=== PATIENT | female | born 2005 | race African-American/Black ===

== ENCOUNTER 2024-12-09 10:47 | Emergency (ER) | payer OTHER, SELFPAY ==
--- NOTE | ~2024-12-09 | XR_ITS ---
EXAMINATION: XR CHEST 2 VIEWS HISTORY: pain COMPARISON: There are no prior studies for comparison. FINDINGS: PA and lateral views of the chest are submitted. The lungs are expanded and clear. There is no pleural effusion, pneumothorax, or pulmonary vascular congestion. The heart is normal in size. The bones are intact. XR/XR chest 2V IMPRESSION: Normal examination of the chest. Electronically signed by: Morgan Ryan MD 12/09/2024 11:44 AM EDT
[2024-12-09 11:16] VITALS: BP 115/73; PULSE 92; RESP 18; TEMP 36.4; O2SAT 99; BMI 25.6
--- NOTE | 2024-12-09 11:16 | ED_ITS ---
HPI - General Adult General Chief complaint: Upper Respiratory Symptoms Stated complaint: cough up blood Time Seen by Provider: 12/09/24 13:03 Source: patient Mode of arrival: ambulatory Limitations: no limitations History of Present Illness ED Provider: julianne jordan np HPI narrative: Patient is a 18-year-old female who presents emergency department for evaluation. She reports since yesterday evening she noticed flex of blood in her phlegm upon coughing. She has had a productive cough for the past 2 days. [facility], she received Tylenol, ibuprofen, and a cough syrup. She states she decided to come to emergency department today due to the concern of blood that she had noticed in the phlegm. She denies associated fevers, chills, chest pain, shortness of breath, difficulty breathing, nausea, vomiting, abdominal pain, numbness or tingling of the extremities, personal history of VTE/malignancy, use of anticoagulants or known coagulation disorders, recent lower extremity redness pain or swelling. She is on Nexplanon contraception. Related Data Previous Rx's ?Medication ?Instructions ?Recorded benzonatate 200 mg capsule 200 mg PO TID PRN cough #14 caps 12/09/24 Allergies Allergy/AdvReac Type Severity Reaction Status Date / Time No Known Allergies Allergy Verified 12/09/24 11:18 Review of Systems 2 Review of Systems: Yes all other systems are reviewed and are negative PMFSH Past Medical History Attestation statement: The following information was validated with the patient. Source: old records reviewed Social History Social History Smoked in Last 30 Days: No Substance Use Type: Marijuana Advance Directives: No Advance Directives Information Provided: Yes Physical Exam ED Vital Signs: Vital Signs - 24 hr 12/09/24 11:16 12/09/24 13:40 Temperature 97.5 F 98.0 F Pulse Rate 92 90 Respiratory Rate 18 16 Blood Pressure 115/73 111/60 Pulse Oximetry 99 97 Oxygen Delivery Method Room Air Room Air BMI result Body Mass Index 25.6 Appearance: Alert.?Oriented to person, place and time. No acute distress.?Normal affect. Eyes: Pupils equal, round and reactive to light.? ENT: TM normal bilaterally. Pharynx normal.?? Neck: Normal inspection.? Neck supple.??No cervical adenopathy CVS: Heart sounds normal. Normal heart rate and rhythm.? Pulses normal.?? Respiratory: No respiratory distress.? Lung sounds clear to auscultation bilaterally?? Abdomen: Soft and non-tender. Normoactive bowel sounds. Skin: Skin warm and dry.? Normal skin color.? ? Extremities: No lower extremity edema.? Neuro: Moves all extremities spontaneously. Sensation intact bilaterally. No motor deficits. Ambulates with normal steady gait. Course Course Course Narrative: RME, this is a rapid medical exam performed by Kannan Doshi please refer to primary provider for complete H&P- 18-year-old female with past medical history significant for cerebral palsy, epilepsy presents for evaluation of coughing up blood. Patient reports that she has been coughing worse in the mornings over the last 2 days. She is on Nexplanon contraception. She was well-appearing, vital signs are stable in triage. Plan for labs and chest x-ray Medical Decision Making Medical Decision Making MDM Narrative: Patient is a 18-year-old female with past medical history of cerebral palsy, epilepsy, presenting for evaluation of productive cough with blood-tinged sputum over the past 2 days as per HPI. COVID-19 /Influenza/ RSV testing is negative. CXR was obtained and is without evidence of consolidation or infiltrate, Not favoring pneumonia. She uses Nexplanon for contraception, pulses just greater than 92 however she is otherwise without chest pain shortness of breath tachypnea or hypoxia, lower suspicion for acute pulmonary embolism, D-dimer <150. overall she is Well-appearing, nontoxic, afebrile, Speaking clear full sentences, ambulatory with steady gait. Discussed conservative treatment including rest, hydration, Tylenol/ibuprofen as needed for fever and body aches, saline nasal spray, humidifier, [id number] cold medication. Advised to follow-up with primary care provider as needed, discussed reasons to return back to the emergency department. All questions were answered. Patient discharged home in stable condition. Differential Diagnosis Differential Diagnoses: The differential diagnosis associated with the presentation includes ( See narrative above) Admission/Observation Consideration of admission/observation: Escalation of care including admission/observation considered ( see narrative above) Lab Data [facility] Lab Attestation statement: I reviewed the patient's lab results. ( see narrative above) CBC is without leukocytosis, has a mild normocytic anemia that does not meet transfusion criteria, no thrombocytopenia. No electrolyte derangement. No ALBINO. LFTs unremarkable. 12/09/24 13:03 12/09/24 13:03 Labs: Lab Results 12/09/24 12/09/24 12/09/24 Range/Units 13:00 13:03 14:17 WBC 8.6 (4.8-10.8) X10*3/uL RBC 3.61 L (4.20-5.50) X10*6/uL Hgb 11.1 L (12.0-16.0) g/dl Hct 33.1 L (37.0-47.0) % MCV 91.7 (80.0-98.0) fL MCH 30.7 (27.0-33.0) pg MCHC 33.5 (31.0-35.0) g/dl RDW 12.6 (11.0-16.0) % Plt Count 268 (160-400) X10*3/uL MPV 9.7 (9.4-12.3) fL Immature Gran % (Auto) 0.3 (0.0-0.4) % Neut % (Auto) 66.9 (45-73) % Lymph % (Auto) 25.2 (20-40) % [place] % (Auto) 7.0 (2-11) % Eos % (Auto) 0.3 (0-4) % Baso % (Auto) 0.3 (0-2) % Lymph # (Auto) 2.2 (1.2-4.9) X10*3/uL [place] # (Auto) 0.6 (0.1-1.2) X10*3/uL Eos # (Auto) 0.0 (0.0-0.4) X10*3/uL Baso # (Auto) 0.0 (0.0-0.2) X10*3/uL Abs Immat Gran (auto) 0.03 (0.00-0.03) X10*3/uL Absolute Neuts (auto) 5.7 (2.0-8.3) x10*3/uL Absolute Nucleated RBC 0.000 (0.0-0.012) X10*3/uL Nucleated RBC % (auto) 0.0 (0.0-0.2) /100WBC D-Dimer High Sensitivty < 150 NG/ML Sodium 138 (135-145) mmol/L Potassium 3.8 (3.3-5.1) mmol/L Chloride 106 (96-108) mmol/L Carbon Dioxide 27 (22-29) mmol/L Anion Gap 9 L (12-20) BUN 6 L (9-16) mg/dL Creatinine 0.69 (0.5-1.4) mg/dL Estim Creat Clear Calc 122.8 Estimated GFR > 60 Random Glucose 143 H (60-115) mg/dL Calcium 9.2 (8.4-10.2) mg/dL Total Bilirubin 0.4 (0.0-1.0) mg/dL AST 16 (5-31) U/L ALT 11 (0-31) U/L Alkaline Phosphatase 82 (39-117) U/L Total Protein 7.4 (6.5-8.0) g/dL Albumin 4.2 (3.5-5.0) g/dL Beta HCG, Quant < 2 mIU/mL Influenza Type A (PCR) NEGATIVE (Negative) Influenza Type B (PCR) NEGATIVE (Negative) RSV RNA Qual (PCR) NEGATIVE (Negative) SARS-CoV-2 RNA (RT-PCR) NEGATIVE (Negative) Independent Interpretation I performed an independent interpretation of an: Plain X-Ray ( no consolidation or opacity, no mass) Radiology Impression Discussion of test interpretation with radiology: I have reviewed the radiologist's reading. Radiologist Impression: EXAMINATION: XR CHEST 2 VIEWS HISTORY: pain COMPARISON: There are no prior studies for comparison. FINDINGS: PA and lateral views of the chest are submitted. The lungs are expanded and clear. There is no pleural effusion, pneumothorax, or pulmonary vascular congestion. The heart is normal in size. The bones are intact. XR/XR chest 2V IMPRESSION: Normal examination of the chest. Prescription Management I considered prescription management with: Pain Medication ( acetaminophen/ibuprofen) Discharge Plan Discharge Clinical Impression: Bronchitis Patient Disposition: Home, Self-Care Instructions: Acute Bronchitis (ED) Additional Instructions: chest x-ray today is normal and shows no sign of pneumonia. Blood work is very reassuring. Testing for COVID/flu/RSV is negative. As discussed, you can sometimes experience small flecks of blood in your phlegm due to the excessive coughing. I have sent an additional medication. To take to the pharmacy [facility] Perles/benzonatate to help decrease your cough Prescriptions: New benzonatate 200 mg capsule 200 mg PO TID PRN (Reason: cough) Qty: 14 0RF Referrals: Physician,Nonstaff [Primary Care Provider] - Print Language: Nauruan
[2024-12-09 13:10] LABS: Basophils Percent Auto 0.3 % (0-2); Eosinophils Percent Auto 0.3 % (0-4); Hematocrit 33.1 % (37.0-47.0); Hemoglobin 11.1 g/dl (12.0-16.0); Imm Gran Abs Auto 0.03 X10*3/uL (0.00-0.03); Imm Gran Pct Auto 0.3 % (0.0-0.4); Lymphocytes Absolute Auto 2.2 X10*3/uL (1.2-4.9); Lymphocytes Percent Auto 25.2 % (20-40); MANUAL DIFF FLAG NO; Mean Corpuscular HGB Conc 33.5 g/dl (31.0-35.0); Mean Corpuscular Hemoglobin 30.7 pg (27.0-33.0); Mean Corpuscular Volume 91.7 fL (80.0-98.0); Mean Platelet Volume 9.7 fL (9.4-12.3); Monocytes Absolute Auto 0.6 X10*3/uL (0.1-1.2); Neutrophils Absolute Auto 5.7 x10*3/uL (2.0-8.3); Neutrophils Percent Auto 66.9 % (45-73); Platelet Count 268 X10*3/uL (160-400); Red Blood Count 3.61 X10*6/uL (4.20-5.50); Red Cell Distribution Width 12.6 % (11.0-16.0); White Blood Count 8.6 X10*3/uL (4.8-10.8)
[2024-12-09 13:34] LABS: Alanine Aminotransferase 11 U/L (0-31); Albumin Level 4.2 g/dL (3.5-5.0); Alkaline Phosphatase 82 U/L (39-117); Anion Gap 9 (12-20); Aspartate Amino Transferase 16 U/L (5-31); Bilirubin Total 0.4 mg/dL (0.0-1.0); Blood Urea Nitrogen 6 mg/dL (9-16); Calcium 9.2 mg/dL (8.4-10.2); Carbon Dioxide 27 mmol/L (22-29); Chloride 106 mmol/L (96-108); Creatinine Clr Calc Pharmacy 122.8; Estimated Glomerular Filt Rate > 60; Glucose Random 143 mg/dL (60-115); Potassium 3.8 mmol/L (3.3-5.1); Sodium 138 mmol/L (135-145); Total Protein 7.4 g/dL (6.5-8.0)
[2024-12-09 13:40] VITALS: BP 111/60; PULSE 90; RESP 16; TEMP 36.7; O2SAT 97
[2024-12-09 13:43] LABS: HCG Quantitative < 2 mIU/mL
[2024-12-09 13:47] LABS: Influenza A PCR NEGATIVE (Negative); Influenza B PCR NEGATIVE (Negative); Resp Syncy Virus RNA Qual PCR NEGATIVE (Negative); SARS COV2 PCR INHOUSE NEGATIVE (Negative)
[2024-12-09 14:37] LABS: D Dimer High Sensitivity < 150 NG/ML
[2024-12-09 14:53] VITALS: BP 111/60; PULSE 90; RESP 16; TEMP 36.7; O2SAT 97
== END 2024-12-09 14:54 | disposition home or self-care (01) ==
PROVIDERS: Nurse Practitioner Family; Physician Assistant; Emergency Provider Emergency Medicine
DX: J40 Bronchitis, not specified as acute or chronic (principal); R05.9 Cough, unspecified; Z03.818 Encounter for observation for suspected exposure to other biological agents ruled out
CPT/HCPCS: 0241U; 36415; 71046; 80053; 84702; 85025; 85379; 99283; 99284

== ENCOUNTER → 2024-12-09 11:18 | Outpatient (BNV) | payer SELFPAY | PROVIDERS: Visit Provider Radiology Diagnostic Radiology | DX: R07.9 Chest pain, unspecified (principal) | CPT/HCPCS: 71046 ==